=== PATIENT | female | born 1965 | race Caucasian/White ===

== ENCOUNTER 2016-11-13 08:13 | Outpatient (CLI) | payer OTHER ==
[2016-11-13 12:26] LABS: ALBUMIN/GLOBULIN RATIO 1.4 (1.0-2.2); BILIRUBIN,TOTAL 0.7 mg/dL (0.2-1.0); CALCIUM 9.1 mg/dL (8.5-10.3); CREATININE 0.7 mg/dL (0.4-1.0); POTASSIUM 4.1 mmol/L (3.5-5.0); TOTAL PROTEIN 7.3 g/dL (6.7-8.2)
[2016-11-13 12:46] LABS: TOTAL T3 1.07 ng/mL (0.87-1.78)
[2016-11-13 13:08] LABS: THYROID STIMULATING HORMONE < 0.08 uIU/mL (0.34-5.60)
== END 2016-11-13 08:14 | disposition home or self-care (01) ==
LOC: LAB.F 08:13
PROVIDERS: ATTEND Physician Assistant
DX: Z00.00 Encounter for general adult medical examination without abnormal findings (principal)
CPT/HCPCS: 36415; 80053; 84439; 84443; 84480; 84481; 84482

== ENCOUNTER 2017-10-27 11:17 | Outpatient (CLI) | payer OTHER ==
--- NOTE | 2017-10-28 13:34 | Mammography Report ---
Procedure Date: 10/27/2017 Accession Number: [id number] / [id number] Procedure: ALISON - Screening Mammo Dig Bilat CPT Code: FULL RESULT: EXAM: Screening Mammo Dig Bilat DATE: 10/27/2017 11:32 AM CLINICAL HISTORY: Routine screening. TECHNIQUE: Bilateral CC and MLO views were obtained. COMPARISON: 10/18/2013 FINDINGS: The breast tissue is heterogeneously dense. No significant interval change. No suspicious masses, skin thickening, clustered microcalcifications, or regions of architectural distortion are identified. IMPRESSION: Negative. RECOMMENDATION: Routine annual screening unless otherwise clinically indicated. BIRADS CATEGORY 1: Negative STANDARD QUALIFYING STATEMENTS: 1. This examination was reviewed with the aid of Computer-Aided Detection (CAD). 2. A negative or benign imaging report should not delay biopsy if clinically suspicious findings are present. Consider surgical consultation if warrented. More than 5% of cancers are not identified by imaging. 3. Dense breasts may obscure an underlying neoplasm.
== END 2017-10-27 11:18 | disposition home or self-care (01) ==
LOC: DI 11:17
PROVIDERS: ATTEND Physician Assistant
DX: Z12.31 Encounter for screening mammogram for malignant neoplasm of breast (principal)
CPT/HCPCS: 77067

== ENCOUNTER 2017-11-09 08:20 | Outpatient (CLI) | payer OTHER ==
[2017-11-09 11:54] LABS: ALBUMIN 3.8 g/dL (3.2-5.5); ALBUMIN/GLOBULIN RATIO 1.1 (1.0-2.2); ALKALINE PHOSPHATASE 53 IU/L (42-121); ALT ALANINE AMINOTRANSFERASE 46 IU/L (10-60); AST ASPARTATE AMINOTRANSFERASE 34 IU/L (10-42); BILIRUBIN,TOTAL 0.8 mg/dL (0.2-1.0); BUN - BLOOD UREA NITROGEN 10 mg/dL (6-20); CARBON DIOXIDE - CO2 25 mmol/L (21-32); CHLORIDE 101 mmol/L (101-111); CHOL/HDL RATIO 4.2 (<4.4); CHOLESTEROL 172 mg/dL; CREATININE 0.8 mg/dL (0.4-1.0); GFR - MDRD 75 (>89); GLUCOSE 99 mg/dL (70-100); HDL CHOLESTEROL 41 mg/dL; LDL CHOLESTEROL,CALCULATED 102 mg/dL; LDL/HDL RATIO 2.5 (<4.4); SODIUM 135 mmol/L (135-145); TOTAL PROTEIN 7.3 g/dL (6.7-8.2); VLDL CHOLESTEROL 29 mg/dL
[2017-11-09 12:07] LABS: THYROID STIMULATING HORMONE < 0.08 uIU/mL (0.34-5.60)
[2017-11-09 12:09] LABS: FREE T4 (FREE THYROXINE) 1.41 ng/dL (0.58-1.64)
== END 2017-11-09 08:21 | disposition home or self-care (01) ==
LOC: LAB.F 08:20
PROVIDERS: ATTEND Physician Assistant
DX: Z00.00 Encounter for general adult medical examination without abnormal findings (principal); E03.9 Hypothyroidism, unspecified
CPT/HCPCS: 36415; 80053; 80061; 83721; 84439; 84443; 84481

== ENCOUNTER 2022-05-27 07:50 | Outpatient (CLI) | payer OTHER ==
--- NOTE | 2022-05-28 11:57 | Mammography Report ---
BILATERAL DIGITAL SCREENING MAMMOGRAM 3D/2D WITH EXAGGERATED CC: 05/27/2022 CLINICAL: Routine screening. Family history of breast cancer. Comparison is made to exams dated: 10/27/2017 mammogram and 10/18/2013 mammogram - [facility]. There are scattered areas of fibroglandular density in both breasts (category b / 25%-50% glandular t issue). There is an asymmetry with an indistinct, circumscribed, and microlobulated margin in the left breast at 5 o'clock middle depth. There also is a possible oval asymmetry with an indistinct margin in the left breast at 6 o'clock in the retroareolar region. No other significant masses, calcifications, or other findings are seen in either breast. IMPRESSION: INCOMPLETE: NEEDS ADDITIONAL IMAGING EVALUATION The asymmetry in the left breast at 5 o'clock middle depth is indeterminate. Additional views with p ossible ultrasound are recommended. The possible oval asymmetry in the left breast at 6 o'clock in the retroareolar region is indetermina te. Additional views with possible ultrasound are recommended. Based on the Tyrer Cuzick model (a risk assessment model) the patients lifetime risk is 10.4% and he r 10 year risk is 4.0%. According to the ACR, ACS, and NCCN guidelines, an annual breast MRI exam jazlyn ng with mammogram is recommended if the patients lifetime risk is 20% or greater. This exam was interpreted at Station ID: [id number]. NOTE: For mammograms, a report in lay terms will be sent to the patient. Approximately 15% of breast malignancies will not be visualized mammographically. In the management of a palpable breast mass, a negative mammogram must not discourage biopsy of a clinically suspicious lesion. Electronically Signed By: Bel quan/juana:05/27/2022 10:40:40 ACR BI-RADS Category 0: Incomplete 3340F PARENCHYMAL PATTERN: (A) - The breast(s) demonstrate(s) scattered fibroglandular densities. BI-RADS CATEGORY: (0) - 0 Ultrasound [id number] Immediate follow-up LATERALITY: (B)
== END 2022-05-27 07:51 | disposition home or self-care (01) ==
LOC: DI.S 07:50
PROVIDERS: ATTEND Internal Medicine
DX: Z12.31 Encounter for screening mammogram for malignant neoplasm of breast (principal); Z80.3 Family history of malignant neoplasm of breast

== ENCOUNTER 2022-06-11 09:04 | Outpatient (CLI) | payer OTHER ==
--- NOTE | 2022-06-11 15:11 | Ultrasound Report ---
LIMITED ULTRASOUND OF LEFT BREAST: 06/11/2022 CLINICAL: Patient returns today to evaluate focal asymmetries in the left breast. Comparison is made to exams dated: 06/11/2022 mammogram, 05/27/2022 mammogram, 10/27/2017 mammogram, and 10/18/2013 mammogram - [facility]. Color flow and real-time ultrasound of the left breast 4 o'clock, 6 o'clock, and retroareolar regions were performed. Roque scale images of the real-time examination were reviewed. There is a benign 0.4 cm oval simple cyst in the left breast at 4 o'clock middle depth 4 cm from the nipple. This oval simple cyst is anechoic. This correlates with mammography findings. Color flow i maging demonstrates that there is no vascularity present. There also is a benign dilated duct in the left breast at 6 o'clock in the retroareolar region. This correlates with mammography findings. Color flow imaging demonstrates that there is no vascularity present. No intraductal mass. IMPRESSION: BENIGN There is no sonographic evidence of malignancy. The 0.4 cm oval simple cyst in the left breast at 4 o'clock middle depth is benign. The dilated duct in the left breast at 6 o'clock in the retroareolar region is benign. A 1 year screening mammogram is recommended. Exam findings were conveyed to the patient. This exam was interpreted at Station ID: [id number]. Electronically Signed By: Joey Murray M.D. slc/:06/11/2022 10:36:37 Ultrasound BI-RADS: 2 Benign BI-RADS CATEGORY: (2) - 2 RECOMMENDATION: (ANNUAL) - Recommend routine annual screening mammography. [id number] 1 year screening LATERALITY: (B)
--- NOTE | 2022-06-11 15:11 | Mammography Report ---
UNILATERAL LEFT DIGITAL DIAGNOSTIC MAMMOGRAM 3D/2D WITH SPOT COMPRESSION: 06/11/2022 CLINICAL: Patient returns today to evaluate focal asymmetries in the left breast. Comparison is made to exams dated: 05/27/2022 mammogram, 10/27/2017 mammogram, and 10/18/2013 mammogram - [facility]. There are scattered areas of fibroglandular density in the left breast (category b / 25%-50% glandula r tissue). There is an asymmetry with an indistinct margin in the left breast at 4 o'clock middle depth. This i s less prominent. There also is an oval asymmetry in the left breast at 6 o'clock in the retroareolar region. No other significant masses or calcifications are seen in the breast. IMPRESSION: INCOMPLETE: NEEDS ADDITIONAL IMAGING EVALUATION The asymmetry in the left breast at 4 o'clock middle depth is indeterminate. The oval asymmetry in the left breast at 6 o'clock in the retroareolar region is indeterminate. A targeted ultrasound is recommended and will immediately follow. This exam was interpreted at Station ID: [id number]. NOTE: For mammograms, a report in lay terms will be sent to the patient. Approximately 15% of breast malignancies will not be visualized mammographically. In the management of a palpable breast mass, a negative mammogram must not discourage biopsy of a clinically suspicious lesion. Electronically Signed By: Joey Murray M.D. slc/:06/11/2022 09:52:40 ACR BI-RADS Category 0: Incomplete 3340F PARENCHYMAL PATTERN: (A) - The breast(s) demonstrate(s) scattered fibroglandular densities. BI-RADS CATEGORY: (0) - 0 Ultrasound [id number] Immediate follow-up LATERALITY: (B)
== END 2022-06-11 09:05 | disposition home or self-care (01) ==
LOC: DI 09:04
PROVIDERS: ATTEND Internal Medicine
DX: N60.02 Solitary cyst of left breast (principal); N60.42 Mammary duct ectasia of left breast

== ENCOUNTER 2023-07-06 08:47 | Day surgery (SDC) | payer OTHER ==
[2023-07-06] MEDS: LACTATED RINGERS 1,000 ML IV ONE ×2 (08:49→10:47)
[2023-07-06] MEDS ORDERED: PROPOFOL 500 MG/50 ML 500 MG/50 ML VIAL ONE (09:39)
--- NOTE | 2023-07-06 09:49 | ANESTHESIA ---
Pre-Anesthesia VS, & Labs - Diagnosis screening - Procedure colonoscopy Vital Signs: Temp Pulse Resp BP Pulse Ox O2 Flow Rate 36.1 C L 76 18 121/71 97 07/06/23 08:55 07/06/23 08:55 07/06/23 08:55 07/06/23 08:55 07/06/23 08:55 Height: 5 ft 6 in Weight (kg): 68 kg Body Mass Index: 24.2 BMI Classification: Normal - NPO Other (prep as directed) - Is Patient ?: No Home Medications and Allergies Home Medications: Ambulatory Orders Levothyroxine Sodium [Synthroid] 75 mcg PO DAILY 07/03/23 Levothyroxine Sodium [Synthroid] 75 mcg PO DAILY 07/03/23 Allergies/Adverse Reactions: Allergies Allergy/AdvReac Type Severity Reaction Status Date / Time No Known Drug Allergies Allergy Verified 07/06/23 09:04 Anes History & Medical History - Anesthetic History Anesthesia Complications: reports: No previous complications - Medical History Cardiovascular: reports: None Pulmonary: reports: None Gastrointestinal: reports: None Urinary: reports: None Musculoskeletal: reports: None Endocrine/Autoimmune: reports: HyPOthyroidism Skin: reports: None History of Cancer?: No - Surgical History General: reports: Colonoscopy Exam General: Alert, Oriented x3 Dental: WNL Mouth Opening: Greater than 4 Fingerbreadths Neck Mobility: Normal Mallampati classification: II Thyromental Distance: greater than 6 cm Respiratory: Lungs clear Cardiovascular: Regular rate Plan Anesthesia Type: Total IV Consent for Procedure(s) Verified and Reviewed: Yes Code Status: Attempt Resuscitation ASA classification: 2-Mild systemic disease Is this case an emergency?: No
[2023-07-06 11:01] VITALS: O2SAT 99
[2023-07-06 11:20] VITALS: BP 119/66
--- NOTE | 2023-07-06 15:18 | ANESTHESIA POST OP EVALUATION ---
Anesthesia Post Eval - Post Anesthesia Eval Vitals: Last Vital Signs Temp 36.1 C L 07/06/23 11:10 Pulse 66 07/06/23 11:10 Resp 18 07/06/23 11:10 BP 119/66 07/06/23 11:10 Pulse Ox 99 07/06/23 11:10 O2 Flow Rate CV Function Including HR & BP: Stable Pain Control: Satisfactory Nausea & Vomiting: Negative Mental Status: Baseline Respiratory Status: Airway Patent Hydration Status: Satisfactory Anesthesia Complications: None
== END 2023-07-06 08:48 | disposition home or self-care (01) ==
LOC: SDS 08:47
PROVIDERS: ATTEND Surgery
PROC: 0DBK8ZX Excision of Ascending Colon, Via Natural or Artificial Opening Endoscopic, Diagnostic (ICD-10-PCS; principal; 2023-07-06 10:35)
DX: Z12.11 Encounter for screening for malignant neoplasm of colon (principal); D12.2 Benign neoplasm of ascending colon; K57.30 Diverticulosis of large intestine without perforation or abscess without bleeding; K64.8 Other hemorrhoids; E03.9 Hypothyroidism, unspecified
CPT/HCPCS: 45385; J7120